=== PATIENT | male | born 1965 | race Caucasian/White ===

== ENCOUNTER 2021-11-15 10:27 | Emergency (ER) | payer OTHER ==
[~2021-11-15] VITALS: Ht 170.2 cm; Wt 79.0 kg
[2021-11-15 12:56] LABS: CHLORIDE 107 mEq/L (98-107)
[2021-11-15 13:00] LABS: BASOPHILS % 0.7 % (0.0-2.0); HEMATOCRIT. 45.1 % (42.0-52.0); HEMOGLOBIN. 15.5 g/dL (14.0-18.0); LYMPHOCYTES % 37.8 % (20.0-50.0); MEAN CORPUSCULAR HEMOGLOBIN 29.9 pg (28.0-32.0); MEAN CORPUSCULAR VOLUME 86.8 fL (80.0-94.0); MEAN PLATELET VOLUME 10.4 fl (7.4-10.4); MONOCYTES % 9.5 % (2.0-8.0); PLATELET 171 x1000/uL (130-400); RED CELL DISTRIBUTION WIDTH 13.5 % (11.6-14.6)
[2021-11-15 18:41] VITALS: BP 106/75
== END 2021-11-15 19:00 | disposition admitted as inpatient to this hospital (09) ==
LOC: ER 10:27 → EDBEDREQ 15:30 → ER 19:00 → CANBEDREQ 19:51
DX: I20.0 Unstable angina (principal); I10 Essential (primary) hypertension; I11.0 Hypertensive heart disease with heart failure; I50.9 Heart failure, unspecified
CPT/HCPCS: 36415; 71045; 80053; 83880; 84484; 85025; 93005; 99285